=== PATIENT | male | born 1995 | race Caucasian/White ===

== ENCOUNTER 2019-05-30 17:36 | Emergency (ER) | payer SELFPAY ==
[~2019-05-30] VITALS: Ht 188 cm; Wt 77.1 kg
[2019-05-30] MEDS ORDERED: ONDANSETRON PF 4 MG/2 ML VIAL. ONE (17:51)
--- NOTE | 2019-05-30 17:52 | PHYS DOC ---
Past Medical History Past Medical History: Alcoholism (RONAL GU MD) Adult General Chief Complaint Chief Complaint: WITHDRAWL HPI HPI Patient is a 23 year old male patient with history of alcoholism who presents via EMS with complaint of nausea and vomiting and agitation. Patient states he has had 1 pint of vodka every day with the last shot last night and since this morning had more than 4 episodes of nonbloody vomiting and then to detox center but feeling very agitated and doesn't want to alone by himself. Patient denies suicidal or homicidal ideation and hallucination, alcohol withdrawal seizure, mental hospitalization. EMS reported that they treated him with 4 mg of sublingual Zofran. Patient had frequent hospitalization and emergency room visits at [facility] and was told to not return to the hospital anymore and EMS decided to bring him to this hospital. Patient had strong family history of alcohol abuse and social problems. (RONAL GU MD) Review of Systems Review of Systems Constitutional: Denies fever or chills [] Eyes: Denies change in visual acuity, redness, or eye pain [] HENT: Denies nasal congestion or sore throat [] Respiratory: Denies cough or shortness of breath [] Cardiovascular: No additional information not addressed in HPI [] GI: Denies abdominal pain, bloody stools or diarrhea, reports nausea and vomiting[] : Denies dysuria or hematuria [] Musculoskeletal: Denies back pain or joint pain [] Integument: Denies rash or skin lesions [] Neurologic: Denies headache, focal weakness or sensory changes [] Endocrine: Denies polyuria or polydipsia [] All other systems were reviewed and found to be within normal limits, except as documented in this note. (RONAL GU MD) Current Medications Current Medications Current Medications Medications (Trade) Dose Ordered Sig/Humble Start Time Stop Time Status Last Admin Dose Admin Lorazepam (Ativan Inj) 2 mg STK-MED ONCE 05/30/19 17:51 05/30/19 17:51 DC Multivitamins 10 ml/Thiamine HCl 100 mg/Folic Acid 1 mg/Sodium Chloride 1,011.2 ml @ 1,000 mls/ hr 1X ONCE 05/30/19 19:00 05/30/19 20:00 05/30/19 18:21 1,000 MLS/HR Ondansetron HCl (Zofran) 4 mg 1X ONCE 05/30/19 18:30 05/30/19 18:31 DC 05/30/19 18:32 4 MG Sodium Chloride 1,000 ml @ 1,000 mls/hr Q1H 05/30/19 18:00 05/30/19 18:59 DC 05/30/19 17:53 1,000 MLS/HR (ZOHRA GALLOWAY DO) Allergies Allergies Allergies Coded Allergies Type Severity Reaction Last Updated Verified No Known Drug Allergies 05/30/19 No (ZOHRA GALLOWAY DO) Physical Exam Physical Exam Constitutional: Well developed, well nourished, moderate distress, non-toxic appearance. [] HENT: Normocephalic, atraumatic, oropharynx dry Eyes: PERRLA, EOMI, conjunctiva normal, no discharge. [] Neck: Normal range of motion, no tenderness, supple, no stridor. [] Cardiovascular: Tachycardia, no murmur [] Lungs & Thorax: Bilateral breath sounds clear to auscultation [] Abdomen: Bowel sounds normal, soft, no tenderness, no masses, no pulsatile masses. [] Skin: Warm, dry, no erythema, no rash. [] Back: No tenderness, no CVA tenderness. [] Extremities: No tenderness, no cyanosis, no clubbing, ROM intact, no edema, bilateral upper extremity shaking. [] Neurologic: Alert and oriented X 3, normal motor function, normal sensory function, no focal deficits noted. [] Psychologic: Affect anxious, mood normal. [] (RONAL GU MD) Current Patient Data Vital Signs Vital Signs Date Time Temp Pulse Resp B/P (MAP) Pulse Ox O2 Delivery O2 Flow Rate FiO2 05/30/19 18:25 98 18 132/76 (94) 99 Room Air 05/30/19 17:38 98.6 98.6 (ZOHRA GALLOWAY DO) Lab Values Laboratory Tests Test 05/30/19 17:52 White Blood Count 4.3 x10^3/uL (4.0-11.0) Red Blood Count 4.64 x10^6/uL (4.30-5.70) Hemoglobin 13.5 g/dL (13.0-17.5) Hematocrit 40.0 % (39.0-53.0) Mean Corpuscular Volume 86 fL (79-100) Mean Corpuscular Hemoglobin 29 pg (25-35) Mean Corpuscular Hemoglobin Concent 34 g/dL (31-37) Red Cell Distribution Width 18.5 % (11.5-14.5) H Platelet Count 180 x10^3/uL (140-400) Neutrophils (%) (Auto) 67 % (31-73) Lymphocytes (%) (Auto) 23 % (24-48) L Monocytes (%) (Auto) 8 % (0-9) Eosinophils (%) (Auto) 0 % (0-3) Basophils (%) (Auto) 1 % (0-3) Neutrophils # (Auto) 2.9 x10^3/uL (1.8-7.7) Lymphocytes # (Auto) 1.0 x10^3/uL (1.0-4.8) Monocytes # (Auto) 0.3 x10^3/uL (0.0-1.1) Eosinophils # (Auto) 0.0 x10^3/uL (0.0-0.7) Basophils # (Auto) 0.1 x10^3/uL (0.0-0.2) Prothrombin Time 12.1 SEC (11.7-14.0) Prothrombin Time INR 0.9 (0.8-1.1) Sodium Level 134 mmol/L (136-145) L Potassium Level 3.4 mmol/L (3.5-5.1) L Chloride Level 93 mmol/L (98-107) L Carbon Dioxide Level 21 mmol/L (21-32) Anion Gap 20 (6-14) H Blood Urea Nitrogen 6 mg/dL (8-26) L Creatinine 1.2 mg/dL (0.7-1.3) Estimated GFR (Cockcroft-Gault) 74.4 Glucose Level 216 mg/dL (70-99) H Calcium Level 9.8 mg/dL (8.5-10.1) Magnesium Level Pending Total Bilirubin Pending Direct Bilirubin Pending Aspartate Amino Transferase (AST) Pending Alanine Aminotransferase (ALT) Pending Alkaline Phosphatase Pending Total Protein Pending Albumin Pending Ethyl Alcohol Level < 10 mg/dL (0-10) Laboratory Tests 05/30/19 17:52 Laboratory Tests 05/30/19 17:52 (ZOHRA GALLOWAY DO) EKG EKG EKG interpreted by me. EKG at 1746 showed sinus tachycardia at rate of 126, RVH, no acute ST and T-wave elevation. (RONAL GU MD) Radiology/Procedures Radiology/Procedures [] (RONAL GU MD) Course & Med Decision Making Course & Med Decision Making Pertinent Labs are pending.[] Evaluation of patient in ER showed 23-year-old male patient with history of alcoholism brought in by EMS because of alcohol withdrawal and agitation. Patient had tachycardia and shaking hands and hypertension without suicidal and homicidal ideation and hallucination. IV fluid, Ativan, Zofran was ordered. Labs was pending. Sign out given to at 1800 for further evaluation and final dis position. Discussed current findings and plan with patient and family, who acknowledge understanding and agreement. (RONAL GU MD) Course & Med Decision Making ED course: Evaluation reveals a 23-year-old male who is in mild to moderate alcohol withdrawal. He was given IV fluids Zofran and Ativan during his stay in the department. He was certainly not agitated or hallucinating during his stay here. Had a long conversation with him he just was to go back to [facility] and then a more formal facility this coming Saturday. At this point, patient is safe for discharge. (ZOHRA GALLOWAY DO) Dragon Disclaimer Dragon Disclaimer This electronic medical record was generated, in whole or in part, using a voice recognition dictation system. (RONAL GU MD) Departure Departure Impression: Primary Impression: Alcohol withdrawal Additional Impressions: Nausea and vomiting Alcoholism Disposition: 01 HOME, SELF-CARE Condition: IMPROVED Patient Instructions: Alcohol Withdrawal Additional Instructions: Follow with [facility]. Return to the emergency department with any new or concerning symptoms Problem Qualifiers Primary Impression: Alcohol withdrawal Complication of substance-induced condition: uncomplicated Qualified Codes: F10.230 - Alcohol dependence with withdrawal, uncomplicated Additional Impressions: Nausea and vomiting Vomiting type: unspecified Vomiting Intractability: unspecified Qualified Codes: R11.2 - Nausea with vomiting, unspecified RONAL GU MD May 30, 2019 17:52 ZOHRA GALLOWAY DO May 30, 2019 19:14
[2019-05-30] MEDS ORDERED: IV NORMAL SALINE 1000ML BAG 1,000 ML IV SCH (18:00)
[2019-05-30] MEDS ORDERED: ONDANSETRON PF 4 MG/2 ML VIAL. IV ONE ×2 (18:00→18:30)
[2019-05-30 18:08] LABS: BASO # 0.1 x10^3/uL (0.0-0.2); BASO % 1 % (0-3); EOS % 0 % (0-3); HEMOGLOBIN 13.5 g/dL (13.0-17.5); LYMPH % 23 % (24-48); MEAN CORPUSCULAR HEMOGLOBIN 29 pg (25-35); MEAN CORPUSCULAR HGB CONC 34 g/dL (31-37); MEAN CORPUSCULAR VOLUME 86 fL (79-100); MONO # 0.3 x10^3/uL (0.0-1.1); MONO % 8 % (0-9); NEUT # 2.9 x10^3/uL (1.8-7.7); NEUT % 67 % (31-73); PLATELET COUNT 180 x10^3/uL (140-400); RED BLOOD COUNT 4.64 x10^6/uL (4.30-5.70); RED CELL DISTRIBUTION WIDTH 18.5 % (11.5-14.5); WHITE BLOOD COUNT 4.3 x10^3/uL (4.0-11.0)
[2019-05-30 18:15] LABS: CALCIUM 9.8 mg/dL (8.5-10.1); CREATININE 1.2 mg/dL (0.7-1.3); GFR 74.4; POTASSIUM 3.4 mmol/L (3.5-5.1)
[2019-05-30 18:16] LABS: PROTHROMBIN TIME PATIENT 12.1 SEC (11.7-14.0)
[2019-05-30 18:21] LABS: DIRECT BILIRUBIN 0.3 mg/dL (0.0-0.2); MAGNESIUM 0.9 mg/dL (1.8-2.4); TOTAL BILIRUBIN 0.7 mg/dL (0.2-1.0); TOTAL PROTEIN 8.5 g/dL (6.4-8.2)
[2019-05-30] MEDS ORDERED: MULTIVIT INFUSN,ADULT 4,VIT K 10 ML, THIAMINE INJ 100 MG, FOLIC ACID INJ 1 MG in IV NOR... IV ONE (19:00)
[2019-05-30 19:25] VITALS: BP 132/83
[2019-05-30] MEDS ORDERED: LORA-434 PO (19:28)
--- NOTE | 2019-06-01 08:50 | EKG ---
[facility] [address] [place] [id number] Test Date: 2019-05-30 Test Time: 17:46:38 Pat Name: SHILOH TAPIA Department: Room: Gender: M [employer]: : 1995 Requested By: ZOHRA GALLOWAY Order Number: [id number] Reading MD: Measurements Intervals [place] Rate: 126 P: -86 RI: 106 QRS: -163 QRSD: 114 T: 26 QT: 328 QTc: 482 Interpretive Statements SUPRAVENTRICULAR RHYTHM RVH WITH REPOLARIZATION ABNORMALITY ABNORMAL ECG RI6.01 No previous ECG available for comparison
== END 2019-05-30 19:25 | disposition home or self-care (01) ==
LOC: ER 17:36
DX: F10.230 Alcohol dependence with withdrawal, uncomplicated (principal); R11.2 Nausea with vomiting, unspecified; R45.1 Restlessness and agitation
CPT/HCPCS: 36415; 80048; 80076; 83735; 85025; 85610; 93005; 96361; 96365; 96375; 96376; 99285; G0480; J2060; J2405; J7030